=== PATIENT | female | born 1955 | race Caucasian/White ===

== ENCOUNTER 2024-11-18 21:42 | Emergency (ER) | payer OTHER, MEDICAID ==
[~2024-11-18] VITALS: Ht 157.5 cm; Wt 80.0 kg
[~2024-11-18 21:42] MED LIST: CEFP100T8 MT; FERR325T6 MT; INSU100I28 SQ
[2024-11-18 22:01] VITALS: BP 165/62; PULSE 123; RESP 20; TEMP 36.8; O2SAT 97
[2024-11-18] MEDS ORDERED: INSULIN LISPRO 100 UNITS/ML SUBCUT ONE ×2 (22:15)
[2024-11-18 22:57] LABS: BASOPHILS % 0.7 % (0.0-2.0); EOSINOPHILS % 0.1 % (0.0-5.0); HEMOGLOBIN. 10.3 g/dL (12.0-16.0); LYMPHOCYTES % 8.9 % (20.0-50.0); MEAN CORPUSCULAR HEMOGLOBIN 26.8 pg (28.0-32.0); MEAN CORPUSCULAR HGB CONC 33.2 g/dL (31.0-37.0); MEAN CORPUSCULAR VOLUME 80.9 fL (81.0-99.0); MEAN PLATELET VOLUME 8.4 fl (7.4-10.4); MONOCYTES % 8.3 % (2.0-8.0); PLATELET 277 x1000/uL (130-400); RED BLOOD CELL COUNT 3.83 mill/uL (4.2-5.4); RED CELL DISTRIBUTION WIDTH 15.6 % (11.6-14.6); WHITE BLOOD COUNT 10.3 x1000/uL (4.5-11.0)
[2024-11-18 23:02] LABS: CHLORIDE 102 mEq/L (98-107); POTASSIUM 4.2 mEq/L (3.5-5.1); SODIUM 134 mEq/L (136-145)
[2024-11-18 23:03] LABS: CALCIUM 9.4 mg/dL (8.7-10.4); CARBON DIOXIDE 24 mEq/L (21-32)
[2024-11-18 23:08] LABS: CREATININE 0.8 mg/dL (0.6-1.0); GLUCOSE 365 mg/dL (70-105); UREA NITROGEN BLOOD 15 mg/dL (9-23)
[2024-11-18 23:09] LABS: TROPONIN I HIGH SENSITIVITY 10 ng/L (3.0-34)
[2024-11-18 23:10] LABS: BETA HYDROXYBUTYRATE 0.1 mMol/L (0.0-0.3)
[2024-11-18] MEDS ORDERED: MAGN400C MT (23:21)
[2024-11-19] MEDS ORDERED: IPRATROPIUM/ALBUTEROL 0.5-3(2.5)MG/3ML NEB HHN PRN (00:15)
[2024-11-19] MEDS ORDERED: GUAIFENESIN 200MG/10ML SUGAR FREE UDC PO PRN (00:15)
[2024-11-19] MEDS ORDERED: ONDANSETRON HCL 4MG/2ML INJ IV PRN (00:15)
[2024-11-19] MEDS ORDERED: ACETAMINOPHEN 325MG TABLET PO PRN ×2 (00:15)
[2024-11-19] MEDS ORDERED: DOCUSATE SODIUM 100MG CAPSULE PO PRN (00:15)
[2024-11-19] MEDS ORDERED: CLONIDINE 0.1MG TABLET PO PRN (00:15)
[2024-11-19] MEDS ORDERED: LORAZEPAM 0.5MG TABLET PO PRN (00:15)
[2024-11-19] MEDS ORDERED: DIPHENHYDRAMINE 25MG CAPSULE PO PRN (00:15)
[2024-11-19] MEDS ORDERED: DEXTROSE 50% WATER 50ML SYRINGE IV PRN (00:30)
[2024-11-19] MEDS: LACTATED RINGERS 1,000 ML IV ONE (04:17)
[2024-11-19 06:01] LABS: PHOSPHORUS 2.6 mg/dL (2.5-4.9)
[2024-11-19] MEDS: INSULIN LISPRO 100 UNITS/ML SUBCUT SCH ×2 (07:50→08:20)
[2024-11-19] MEDS: BLOOD SUGAR DIAGNOSTIC STRIP TEST SCH (08:46)
[2024-11-19] MEDS: LOSARTAN 25 MG TABLET PO SCH (09:43)
[2024-11-19] MEDS: MAGNESIUM OXIDE 400MG TABLET PO SCH (09:43)
[2024-11-19] MEDS: INSULIN GLARGINE 100 UNITS/ML SUBCUT SCH (09:53)
== END 2024-11-19 10:14 | disposition left against medical advice (07) ==
LOC: ER 21:42
DX: E78.5 Hyperlipidemia, unspecified (principal); E11.65 Type 2 diabetes mellitus with hyperglycemia; R10.32 Left lower quadrant pain; I10 Essential (primary) hypertension; J45.909 Unspecified asthma, uncomplicated; Z79.4 Long term (current) use of insulin; Z79.85 Long-term (current) use of injectable non-insulin antidiabetic drugs; Z79.899 Other long term (current) drug therapy; Z87.442 Personal history of urinary calculi; Z91.148 Patient's other noncompliance with medication regimen for other reason
CPT/HCPCS: 99284; 96360; 80061; 80048; 82010; 82040; 83036; 83735 ×2; 83930; 85025; 85610; 84484; 36415 ×2; 93005; 96372; 82962; 84100; J7120; J1815 ×2